=== PATIENT | male | born 1950 | race Caucasian/White ===

== ENCOUNTER 2016-11-20 17:55 | Emergency (ER) | payer OTHER ==
[~2016-11-20] VITALS: Ht 180.3 cm; Wt 90.7 kg
[2016-11-20 18:02] VITALS: BP 161/89
== END 2016-11-20 18:18 | disposition short-term general hospital (02) ==
LOC: ED 17:55
DX: R20.9 Unspecified disturbances of skin sensation (principal); I10 Essential (primary) hypertension; F17.210 Nicotine dependence, cigarettes, uncomplicated
CPT/HCPCS: 83880

== ENCOUNTER 2019-01-22 17:41 | Inpatient (IN) | payer OTHER ==
[~2019-01-22] VITALS: Ht 182.9 cm; Wt 63.5 kg
[2019-01-22 17:53] VITALS: Ht 182.9 cm; Wt 63.5 kg
[2019-01-22 18:22] LABS: BASOPHIL % 0.8 % (0-2); PLATELET COUNT 283 x10^3mcL (130-400); RED CELL DISTRIBUTION WIDTH 14.3 % (11.5-14.5)
[2019-01-22 18:32] LABS: CALCIUM 9.2 mg/dL (8.5-10.1); CARBON DIOXIDE 31.3 mmol/L (21-32); CHLORIDE SERUM 98 mmol/L (98-107); CREATININE SERUM 0.9 mg/dL (0.7-1.3); GFR1 > 60 mL/min; GLUCOSE SERUM 80 mg/dL (74-106); SODIUM SERUM 137 mmol/L (136-145)
[2019-01-22 18:37] LABS: ALBUMIN 3.7 g/dL (3.4-5.0); ALKALINE PHOSPHATASE 91 U/L (46-116); ALT/SGPT 21 U/L (16-63); AST/SGOT 41 U/L (15-37); BILIRUBIN TOTAL 1.24 mg/dL (0.20-1.00); TOTAL PROTEIN, SERUM 7.3 g/dL (6.4-8.2)
[2019-01-22 21:07] LABS: UA SPECIFIC GRAVITY 1.015 (1.005-1.035); microscopic required? YES; urine erythrocyte NEGATIVE (NEGATIVE)
[2019-01-22 21:21] LABS: AMPHETAMINE QUAL UR NONE DETECTED (See below)
[2019-01-22 21:31] LABS: CHOLESTEROL/HDL RATIO 3.1
[2019-01-22 23:40] VITALS: BP 113/51
[2019-01-23 07:10] LABS: BASOPHIL % 0.9 % (0-2); PLATELET COUNT 206 x10^3mcL (130-400)
[2019-01-23 07:16] LABS: RED CELL DISTRIBUTION WIDTH 14.6 % (11.5-14.5)
[2019-01-23 07:55] LABS: CALCIUM 8.4 mg/dL (8.5-10.1); CARBON DIOXIDE 31.2 mmol/L (21-32); CHLORIDE SERUM 105 mmol/L (98-107); GFR1 > 60 mL/min; GLUCOSE SERUM 74 mg/dL (74-106); MAGNESIUM 2.1 mg/dL (1.8-2.4); PHOSPHOROUS 3.8 mg/dL (2.5-4.9); POTASSIUM SERUM 4.2 mmol/L (3.5-5.1); SODIUM SERUM 142 mmol/L (136-145)
[2019-01-23 10:02] VITALS: BP 105/67
[2019-01-23 13:56] VITALS: BP 125/83
[2019-01-23 18:03] VITALS: BP 123/76
[2019-01-23 21:20] VITALS: BP 126/73
[2019-01-24 05:19] VITALS: BP 123/68
[2019-01-24 07:16] LABS: BASOPHIL % 0.6 % (0-2); PLATELET COUNT 213 x10^3mcL (130-400); RED CELL DISTRIBUTION WIDTH 14.4 % (11.5-14.5)
[2019-01-24 07:53] LABS: CALCIUM 8.5 mg/dL (8.5-10.1); CARBON DIOXIDE 31.2 mmol/L (21-32); CHLORIDE SERUM 106 mmol/L (98-107); CREATININE SERUM 0.8 mg/dL (0.7-1.3); GFR1 > 60 mL/min; GLUCOSE SERUM 78 mg/dL (74-106); MAGNESIUM 2.2 mg/dL (1.8-2.4); POTASSIUM SERUM 4.2 mmol/L (3.5-5.1); SODIUM SERUM 143 mmol/L (136-145)
[2019-01-24 08:16] VITALS: BP 123/65
[2019-01-24 13:02] VITALS: BP 110/65
[2019-01-24 17:35] VITALS: BP 127/74
[2019-01-24 20:07] VITALS: BP 129/58
[2019-01-25 06:39] VITALS: BP 131/75
[2019-01-25 07:23] LABS: BASOPHIL % 0.8 % (0-2); PLATELET COUNT 206 x10^3mcL (130-400); RED CELL DISTRIBUTION WIDTH 14.4 % (11.5-14.5)
[2019-01-25 08:59] VITALS: BP 97/67
[2019-01-25 10:59] LABS: CALCIUM 8.2 mg/dL (8.5-10.1); CARBON DIOXIDE 32.1 mmol/L (21-32); CHLORIDE SERUM 107 mmol/L (98-107); CREATININE SERUM 0.9 mg/dL (0.7-1.3); GFR1 > 60 mL/min; GLUCOSE SERUM 81 mg/dL (74-106); MAGNESIUM 2.2 mg/dL (1.8-2.4); POTASSIUM SERUM 4.6 mmol/L (3.5-5.1); SODIUM SERUM 144 mmol/L (136-145)
[2019-01-25 17:56] VITALS: BP 135/65
[2019-01-25 19:05] VITALS: BP 132/72
[2019-01-26 05:46] VITALS: BP 105/60
[2019-01-26 06:28] LABS: BASOPHIL % 0.7 % (0-2); PLATELET COUNT 220 x10^3mcL (130-400); RED CELL DISTRIBUTION WIDTH 14.4 % (11.5-14.5)
[2019-01-26 06:47] LABS: CALCIUM 8.2 mg/dL (8.5-10.1); CHLORIDE SERUM 105 mmol/L (98-107); GFR1 > 60 mL/min; GLUCOSE SERUM 84 mg/dL (74-106); MAGNESIUM 2.1 mg/dL (1.8-2.4); POTASSIUM SERUM 4.4 mmol/L (3.5-5.1); SODIUM SERUM 143 mmol/L (136-145)
[2019-01-26 08:13] VITALS: BP 93/49
[2019-01-26 13:08] VITALS: BP 111/58
[2019-01-26 17:00] VITALS: BP 153/77
[2019-01-26 20:04] VITALS: BP 122/61
[2019-01-27 05:55] VITALS: BP 111/51
[2019-01-27 06:28] LABS: BASOPHIL % 0.9 % (0-2); PLATELET COUNT 220 x10^3mcL (130-400)
[2019-01-27 06:48] LABS: CALCIUM 8.4 mg/dL (8.5-10.1); CARBON DIOXIDE 31.3 mmol/L (21-32); CHLORIDE SERUM 105 mmol/L (98-107); GFR1 > 60 mL/min; GLUCOSE SERUM 81 mg/dL (74-106); POTASSIUM SERUM 4.5 mmol/L (3.5-5.1); SODIUM SERUM 141 mmol/L (136-145)
[2019-01-27 08:49] VITALS: BP 137/68
[2019-01-27] MEDS ORDERED: LIPI10 PO (09:48)
[2019-01-27] MEDS ORDERED: GOOD SENSE ASPI81 M3 PO (09:48)
[2019-01-27] MEDS ORDERED: ZESTRIL5 MG PO (09:49)
[2019-01-27] MEDS ORDERED: METOPROLOL TART25 M1 PO (09:51)
[2019-01-27] MEDS ORDERED: ZYPREXA5 M1 PO (09:52)
[2019-01-27 12:57] VITALS: BP 137/68
== END 2019-01-27 15:00 | disposition home or self-care (01) | DRG 690 ==
LOC: ED 17:41 → DU 20:50 → MU 20:50 → DU 22:21 → MU 01-27 09:57
PROVIDERS: Emergency Medicine; Internal Medicine; ADMIT General Practice
DX: N39.0 Urinary tract infection, site not specified (principal); Z68.1 Body mass index [BMI] 19.9 or less, adult; R74.0 Nonspecific elevation of levels of transaminase and lactic acid dehydrogenase [LDH]; I11.9 Hypertensive heart disease without heart failure; I25.119 Atherosclerotic heart disease of native coronary artery with unspecified angina pectoris; F20.9 Schizophrenia, unspecified; Z95.5 Presence of coronary angioplasty implant and graft; Z59.0 Homelessness
CPT/HCPCS: 76770; 83880; 97110-GP; 97116-GP; 97530-GP; A9500; G0378; G0480; J0696; J1650; J2785; J7030; Q0092